=== PATIENT | female | born 2000 | race Caucasian/White ===

== ENCOUNTER 2022-12-26 18:46 | Emergency (ER) | payer OTHER, BC ==
[2022-12-26] MEDS ORDERED: ORPHENADRINE 60 MG/2 ML (NORFLEX) AMP (ED ONLY) IM ONE (19:15)
[2022-12-26] MEDS ORDERED: KETOROLAC 15 MG/ML VIAL IM ONE (19:15)
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
[2022-12-26] MEDS ORDERED: CYCL10TA25 PO (19:29)
[2022-12-26 19:36] VITALS: BP 158/96
== END 2022-12-26 19:37 | disposition home or self-care (01) ==
LOC: ER 18:49
DX: M25.511 Pain in right shoulder (principal); M54.2 Cervicalgia; F17.290 Nicotine dependence, other tobacco product, uncomplicated; V89.2XXA Person injured in unspecified motor-vehicle accident, traffic, initial encounter; Y92.410 Unspecified street and highway as the place of occurrence of the external cause